=== PATIENT | male | born 1950 | race Caucasian/White ===

== ENCOUNTER 2020-08-18 22:16 | Observation (INO) | payer OTHER, SELFPAY ==
[2020-08-18 22:17] VITALS: TEMP 36.4; BMI 29.7
[2020-08-18 22:22] VITALS: BP 164/79; PULSE 62; RESP 17; O2SAT 97
--- NOTE | 2020-08-18 22:31 | EKG12_ITS ---
Test Reason : CP Blood Pressure : / mmHG Vent. Rate : 064 BPM Atrial Rate : 064 BPM P-R Int : 144 ms QRS Dur : 110 ms QT Int : 430 ms P-R-T Axes : 058 -22 002 degrees QTc Int : 443 ms Sinus rhythm with occasional Premature ventricular complexes Possible Left atrial enlargement Inferior infarct , age undetermined Abnormal ECG Confirmed by JOSE RAFAEL VILLAGRAN, BRUCE ([id number]), fan mail editor LARRY MELISSA ([id number]) on 08/19/2020 2:24:47 PM Referred By: JOANNA Confirmed By:BRUCE MANTILLA MD
--- NOTE | 2020-08-18 22:31 | ED.VIS.GEN ---
History of Present Illness Chief Complaint: Weakness Informant: Patient, Family, Nurse Licensed Practical Narrative: 70-year-old male states that earlier this evening he was sitting playing cards when he all of a sudden got lightheaded, sweaty, pale. He felt like he could not control his extremities. He states that they checked his blood pressure and it was high and EMS noted that he was bradycardic. Prehospital EKG shows no ACS. Patient states that he takes an aspirin and a cholesterol medication every day. States that 20 years ago he had a heart attack did not require any stent placement. Earlier in the day he felt his normal self. Current time he feels his normal self. During the event he did not have any discomfort/pain. Past Medical History - Allergies and Home Meds Allergies/Adverse Reactions: Allergies No Known Allergies Allergy (Verified 08/18/20 22:21) Primary Care Physician: NOT,DEFINED [Primary Care Provider] - Past Medical History: - - Heart attack dyslipidemia Surgical History: noncontributory Lives: With Family Smoking Status: Current some day smoker Drugs: None Review of Systems General: Reports: - - Near syncopal. Denies: Chills, Fever, Sweats Eyes: Denies: Visual changes - bilaterally, Diplopia ENT: Denies: Rhinorrhea, Sore throat Cardiovascular: Denies: Chest pain, Palpitations Respiratory: Denies: Dyspnea, Cough, Dyspnea on exertion Gastrointestinal: Denies: Abdominal pain, Nausea, Vomiting, Diarrhea, Melena, Hematochezia Genitourinary: Denies: Dysuria, Hematuria, Frequency Musculoskeletal: Denies: Back pain, Extremity Pain Skin: Denies: Rash, Wounds Neurological: Denies: Headache, Weakness, Numbness Physical Exam Vital Signs/Narrative: Vital Signs Temp Pulse Resp BP Pulse Ox 08/18/20 22:22 62 17 164/79 H 97 08/18/20 22:17 97.6 F L Inital Vital Signs reviewed: Yes General: Well nourished, Well developed, No Acute Distress Head: Normocephalic, Atraumatic Eyes: Perrl, EOMI ENT: Moist mucous membranes, No rhinorrhea Neck: Supple, Nontender Cardiovascular: Regular rate, Regular rhythm, No murmurs Respiratory: No distress, CTA bilaterally, Chest nontender Abdomen: Soft, Nontender, Nondistended, Normal bowel sounds Back: Nontender, Normal Inspection Extremities: Nontender, No edema Skin: Normal color, No rash Neurological: Alert, Oriented x3, Cranial nerves II-XII grossly intact, Normal Strength, Normal Sensation Psychological: Normal affect, Normal Mood Diagnostic/Tx/Re-eval Clinical Impression(s) from Imaging Studies Chest X-Ray 08/18/20 22:32 IMPRESSION: No acute pulmonary process Electronically Signed: Randy Parker MD at 22:50 EDT , Service support , Laboratory Last Values WBC 8.0 K/mm3 (4.4-11.0) 08/18/20 22: RBC 4.62 M/mm3 (4.6-6.2) 08/18/20 22:23 Hgb 14.6 g/dL (13.0-16.5) 08/18/20 22:23 Hct 42.9 % (40-54) 08/18/20 22:23 MCV 92.9 fL (80-94) 08/18/20 22:23 MCH 31.6 pg (27.0-32.0) 08/18/20 22: MCHC 34.0 g/dL (32-36) 08/18/20 22:23 RDW Std Deviation 44.5 fl (35.1-43.9) H 08/18/20 22:23 RDW Coeff of Nicholas 13.0 % (11.6-14.6) 08/18/20 22:23 Plt Count 237 K/mm3 (150-450) 08/18/20 22:23 MPV 9.6 fl (6.2-12.0) 08/18/20 22:23 Immature Gran % (Auto) 0.600 % (0.0-0.9) 08/18/20 22: Neut % (Auto) 59.1 % (47-70) 08/18/20 22: Lymph % (Auto) 30.4 % (19-41) 08/18/20 22:23 [place] % (Auto) 7.5 % (0-10) 08/18/20 22:23 Eos % (Auto) 1.9 % (0-5) 08/18/20 22: Baso % (Auto) 0.5 % (0-1) 08/18/20 22:23 Absolute Neuts (auto) 4.7 X10^3/uL (2.0-7.7) 08/18/20 22:23 Absolute Lymphs (auto) 2.42 X10^3/uL (0.83-4.51) 08/18/20 22:23 Nucleated RBC % 0 % (0-5) 08/18/20 22:23 PT 13.7 SECONDS (11.7-14.9) 08/18/20 22:23 INR 1.1 08/18/20 22:23 APTT 26.0 Seconds (24.1-36.2) 08/18/20 22:23 Sodium 140 mmol/L (136-145) 08/18/20 22:23 Potassium 3.5 mmol/L (3.5-5.1) 08/18/20 22:23 Chloride 107 mmol/L (98-107) 08/18/20 22:23 Carbon Dioxide 28.0 mmol/L (21.0-32.0) 08/18/20 22:23 Anion Gap 5 (5-15) 08/18/20 22:23 BUN 19 mg/dL (7-18) H 08/18/20 22:23 Creatinine 0.80 mg/dL (0.70-1.30) 08/18/20 22:23 Estim Creat Clear Calc 85.92 ml/min 08/18/20 22:23 Est GFR (MDRD) Af Amer 123 mL/min (>60) 08/18/20 22:23 Est GFR (MDRD) Non-Af 102 mL/min (>60) 08/18/20 22:23 BUN/Creatinine Ratio 23.8 RATIO (10-20) H 08/18/20 22:23 Glucose 144 mg/dL (74-106) H 08/18/20 22:23 Calcium 8.4 mg/dL (8.5-10.1) L 08/18/20 22:23 Magnesium 2.1 mg/dL (1.6-2.6) 08/18/20 22:23 Troponin I < 0.015 ng/mL (<0.045) 08/18/20 22:23 - EKG Initial EKG Interpretation: Sinus Rhythm - EKG done upon arrival demonstrates a sinus rhythm at a rate of 64 with PVCs. No concerning features of ACS - Medical Decision Making Patient was observed on the monitor. He continues to have significant ectopy in the forms of PVCs. However no bradycardic rhythms were noted. Basic lab work is negative. Plan is an observational stay to evaluate for possible cardiac dysrhythmia. ED Disposition - Plan for ED Patient: Disposition: Acute Care Hospital [facility] Diagnosis: Near syncope Referrals: NOT,DEFINED [Primary Care Provider] -
--- NOTE | 2020-08-18 22:32 | RAD_ITS ---
STUDY: X-RAY CHEST REASON FOR EXAM: Male, 70 years old. Substernal chest pain TECHNIQUE: Single AP portable view of the chest. COMPARISON: None. FINDINGS: EKG leads overlie the chest The lungs are clear and expanded. There is no demonstrated pleural abnormality. Normal size heart. Normal mediastinum and joycelyn. Normal visualized pulmonary arteries. Normal visualized aortic arch and descending thoracic aorta. There are diffuse degenerative changes of the visualized thoracic spine. Normal visualized ribs, clavicles, and shoulders. There is no demonstrated abnormality of the visualized soft tissue structures of the upper abdomen. RAD/Chest 1 View (Portable) IMPRESSION: No acute pulmonary process Electronically Signed: Randy Parker MD at 22:50 EDT , Service support ,
[2020-08-18 22:37] LABS: Absolute Lymphocyte Count 2.42 X10^3/uL (0.83-4.51); Absolute Neutrophil Count 4.7 X10^3/uL (2.0-7.7); Basophil# 0.04 X10^3/uL; Basophil% 0.5 % (0-1); Eosinophil# 0.15 X10^3/uL; Eosinophils% 1.9 % (0-5); Hematocrit 42.9 % (40-54); Hemoglobin 14.6 g/dL (13.0-16.5); Lymphocyte # 2.42 X10^3/ul (4.0); Lymphocyte % 30.4 % (19-41); Mean Corpuscular Hgb 31.6 pg (27.0-32.0); Mean Corpuscular Volume 92.9 fL (80-94); Mean Platelet Vol. 9.6 fl (6.2-12.0); Monocyte% 7.5 % (0-10); NRBC Flagged by Analyzer 0 % (0-5); Neutrophil # 4.71 X10^3/uL (2.7-7.7); Neutrophil % 59.1 % (47-70); Platelet Count 237 K/mm3 (150-450); RBC Distribution Width SD 44.5 fl (35.1-43.9); Red Blood Count 4.62 M/mm3 (4.6-6.2)
[2020-08-18 22:45] LABS: International Normalized Ratio 1.1; Prothrombin Time (Protime)PT. 13.7 SECONDS (11.7-14.9)
[2020-08-18 22:53] LABS: Anion Gap 5 (5-15); BUN 19 mg/dL (7-18); BUN/Creat Ratio 23.8 RATIO (10-20); Calcium,Total 8.4 mg/dL (8.5-10.1); Chloride 107 mmol/L (98-107); EST Glomerular Filtration Rate 102 mL/min (>60); Est Glom Filt Rate - Afr Amer 123 mL/min (>60); Estimated Creatinine Clearance 85.92 ml/min; Glucose 144 mg/dL (74-106); Magnesium 2.1 mg/dL (1.6-2.6); Potassium 3.5 mmol/L (3.5-5.1); Sodium Level 140 mmol/L (136-145)
[2020-08-18] MEDS: Aspirin 81 MG TAB.CHEW 324 MG PO (23:03)
--- NOTE | 2020-08-18 23:32 | PCM.HP.STD ---
<Madelaine Siu - Last Filed: 08/19/20 02:08> Problem List (1) Near syncope Status: Acute (2) Hyperlipidemia Status: Chronic (3) History of non-ST elevation myocardial infarction (NSTEMI) Status: Chronic History of Present Illness Date of Admission: 08/18/20 Chief Complaint: Lightheadedness with diaphoresis The patient is a 70 year old M who presents today with lightheadedness and diaphoresis. Patient states he was sitting playing cards when event took place. On initial presentation patient was hypertensive and bradycardic. Patient has a past medical history of hyperlipidemia and NSTEMI 20 years ago. Current vital signs BP 155/85, respiratory rate 14, heart rate 55, 98% on room air. Patient states that he is currently not experiencing any symptoms. Patient has not recently been ill and had felt fine up until it that took place. Patient currently sinus rhythm to sinus bradycardia. Past Medical History Past Medical History (Chronic Problems): Chronic Problems Hyperlipidemia (Chronic) History of non-ST elevation myocardial infarction (NSTEMI) (Chronic) Allergies No Known Allergies Allergy (Verified 08/18/20 22:21) Home Medications: Ambulatory Orders Medication Instructions Recorded Aspirin [Aspirin, Baby] 81 mg PO DAILY@0800 08/18/20 Simvastatin [Zocor] 10 mg PO QHS 08/18/20 Red Yeast Rice 600 mg PO DAILY 08/19/20 Surgical History: noncontributory Lives: With Family Smoking Status: Current some day smoker Drugs: None VTE Information - Inpt Only VTE Present on Admission: No VTE Mechan Device Prophylaxis: None VTE Pharm Prophylaxis ordered?: No Patient Problems: Active and Suspected Problems Near syncope (Acute) - Physical Exam Vitals/I&O's: Vital Signs Temp Pulse Resp BP Pulse Ox 97.6 F L 62 17 164/79 H 97 08/18/20 22:17 08/18/20 22:22 08/18/20 22:22 08/18/20 22:22 08/18/20 22:22 Oxygen Delivery Method Room Air Weight: 201 lb 0.985 oz Body Mass Index (BMI) 29.7 Laboratory Results 08/18/20 22:23: WBC 8.0, RBC 4.62, Hgb 14.6, Hct 42.9, MCV 92.9, MCH 31.6, MCHC 34.0, RDW Std Deviation 44.5 H, RDW Coeff of Nicholas 13.0, Plt Count 237, MPV 9.6, Immature Gran % (Auto) 0.600, Neut % (Auto) 59.1, Lymph % (Auto) 30.4, [place] % (Auto) 7.5, Eos % (Auto) 1.9, Baso % (Auto) 0.5, Absolute Neuts (auto) 4.7, Absolute Lymphs (auto) 2.42, Nucleated RBC % 0 08/18/20 22:23: PT 13.7, INR 1.1, APTT 26.0 08/18/20 22:23: Sodium 140, Potassium 3.5, Chloride 107, Carbon Dioxide 28.0, Anion Gap 5, BUN 19 H, Creatinine 0.80, Estim Creat Clear Calc 85.92, Est GFR (MDRD) Af Amer 123, Est GFR (MDRD) Non-Af 102, BUN/Creatinine Ratio 23.8 H, Glucose 144 H, Calcium 8.4 L, Magnesium 2.1, Troponin I < 0.015 Assessment/Plan All Active Problems Near syncope (Acute) <Reji Harrison - Last Filed: 08/19/20 02:46> History of Present Illness The patient is a 70 year old M [] Past Medical History Allergies No Known Allergies Allergy (Verified 08/18/20 22:21) - *Family History Maternal History Items: No pertinent history Paternal History Items: Heart Disease, Hypertension - Physical Exam Vitals/I&O's: Vital Signs Temp Pulse Resp BP Pulse Ox 98.5 F 59 L 16 162/89 H 97 08/19/20 01:00 08/19/20 01:00 08/19/20 01:00 08/19/20 01:00 08/19/20 01:00 Oxygen Delivery Method Room Air Weight: 177 lb 7.554 oz Body Mass Index (BMI) 26.2 Laboratory Results 08/18/20 22:23: WBC 8.0, RBC 4.62, Hgb 14.6, Hct 42.9, MCV 92.9, MCH 31.6, MCHC 34.0, RDW Std Deviation 44.5 H, RDW Coeff of Nicholas 13.0, Plt Count 237, MPV 9.6, Immature Gran % (Auto) 0.600, Neut % (Auto) 59.1, Lymph % (Auto) 30.4, [place] % (Auto) 7.5, Eos % (Auto) 1.9, Baso % (Auto) 0.5, Absolute Neuts (auto) 4.7, Absolute Lymphs (auto) 2.42, Nucleated RBC % 0 08/18/20 22:23: PT 13.7, INR 1.1, APTT 26.0 08/18/20 22:23: Sodium 140, Potassium 3.5, Chloride 107, Carbon Dioxide 28.0, Anion Gap 5, BUN 19 H, Creatinine 0.80, Estim Creat Clear Calc 85.92, Est GFR (MDRD) Af Amer 123, Est GFR (MDRD) Non-Af 102, BUN/Creatinine Ratio 23.8 H, Glucose 144 H, Calcium 8.4 L, Magnesium 2.1, Troponin I < 0.015 08/19/20 01:35: Troponin I < 0.015 Current Medications Acetaminophen (Acetaminophen 325 Mg Tablet) 650 mg PO Q6H PRN PRN PRN Reason: Pain Score 1-10/Temp > 100.7 F Sodium Chloride () 250 mls @ 15 mls/hr IV .[id number] PRN PRN Reason: Saline Flush Sodium Chloride () 250 mls @ 15 mls/hr IV .[id number] PRN PRN Reason: Additional IVPB Infusion Melatonin (Melatonin 3 Mg Tablet) 3 mg PO QHS PRN PRN PRN Reason: INSOMNIA Ondansetron HCl (Ondansetron 4 Mg/2 Ml Vial) 4 mg IV Q8H PRN PRN PRN Reason: NAUSEA/VOMITING Sodium Chloride (0.9% Saline Lock 10 Ml Syringe) 10 - 40 ml IV UD PRN PRN Reason: SALINE FLUSH Addendum: Dr. Harrison I personally examined the patient and reviewed the chart. I agree with the above. 70-year-old male who presents from home with presyncope. He states that he was sitting at home playing cards when he got lightheaded sweaty and pale and almost blacked out. He said that at the time he could barely control his arms or his legs and now feels back to completely normal. Initial troponins were negative, and lab work was unremarkable. EKG was nonischemic and he denies any chest pain or shortness of breath. He states he did have a OH about 20 years ago but did not need any intervention at that time. We will continue to monitor him on telemetry and obtain serial troponins. We will proceed with an echo in the morning. OBSV E&M: [id number] Initial observation care L2
[2020-08-18 23:35] VITALS: BP 155/85; PULSE 55; RESP 14; TEMP 36.3; O2SAT 98
[2020-08-19] VITALS (11 sets, daily range): BP systolic 137–172; BP diastolic 68–89; PULSE 48–59; RESP 15–18; TEMP 36.4–36.9; O2SAT 94–98; BMI 26.2
--- NOTE | 2020-08-19 00:40 | ECHOCS_ITS ---
Reason For Study: Arrhythmia Procedure This was a 2D Doppler, Color Flow transthoracic echocardiogram. The study was technically difficult. Contrast injection was performed. Exam performed portable in patient room. Left Ventricle Normal LV size. Moderate concentric left ventricular hypertrophy. The estimated ejection fraction is 45 %. Mild to moderate segmental systolic dysfunction (see wall motion). Stage 1 diastolic dysfunction. Infero-Basal: Akinetic. Posterior-Basal: Hypokinetic. Lateral-Basal: Hypokinetic. Mid- Lateral : Hypokinetic. Basal inferoseptal: Hypokinetic. Mid-Inferior: Akinetic. The rest of the wall segments are normal. Right Ventricle Normal RV size. Normal systolic function. Atria The left atrium is moderately enlarged. The right atrium is mildly enlarged. Mitral Valve Normal mitral valve. Mild (1+) eccentric mitral valve insufficiency. Tricuspid Valve Normal tricuspid valve. Mild (1+) tricuspid valve insufficiency. Pulmonary artery systolic pressure is 28 mmHg. Aortic Valve Trisinus/trileaflet aortic valve. Mild focal aortic valve calcification. Pericardium/Pleural No pericardial effusion. Medication Diluted definity 3ml given slow IV push to enhance endocardial definition. MMode/2D Measurements & Calculations LVIDd: 5.5 cm IVSd: 1.3 cm LA dimension: 5.0 cm LVIDs: 4.8 cm LVPWd: 1.6 cm RVDd: 4.4 cm FS: 13.5 % LAV(MOD-bp): 100.2 ml LA A4 area: 29.2 cm2 RA A4 area: 21.8 cm2 LAV(MOD-bp) Indexed: 51.1 ml/m2 LAV(MOD-sp2): 80.6 ml LAV(MOD-sp4): 101.1 ml Time Measurements MV dec time: 0.74 sec Doppler Measurements & Calculations MV E max miguelangel: 45.6 cm/sec Lat Peak E' Miguelangel: 11.1 cm/sec Med Peak E' Miguelangel: 5.5 cm/sec MV A max miguelangel: 98.4 cm/sec E/E' lat: 4.1 E/E' med: 8.3 MV E/A: 0.46 MV V2 max: 99.0 cm/sec MV P1/2t max miguelangel: 52.4 cm/sec Ao V2 max: 182.5 cm/sec MV max P.9 mmHg MV P1/2t: 216.9 msec Ao max P.3 mmHg MV V2 mean: 42.8 cm/sec MV mean P.88 mmHg MV dec slope: 70.8 cm/sec2 MV V2 VTI: 32.8 cm MVA(P1/2t): 1.0 cm2 LV V1 max: 100.5 cm/sec PA V2 max: 128.1 cm/sec TR max miguelangel: 245.0 cm/sec LV V1 max P.0 mmHg TR max P.0 mmHg ECHO/Echo Complete W/ Contrast Interpretation Summary Normal LV size. Moderate concentric left ventricular hypertrophy. The estimated ejection fraction is 45 %. Mild to moderate segmental systolic dysfunction (see wall motion). The left atrium is moderately enlarged. Pulmonary artery systolic pressure is 28 mmHg. Stage 1 diastolic dysfunction. Ordering Physician: Madelaine Siu Referring Physician: Isaiah Chinchilla BIOINFORMATICS TECHNICIAN-C Performed By: Ricardo Yee RCS
--- NOTE | 2020-08-19 00:41 | EKG12_ITS ---
Test Reason : CP ADMISSION Blood Pressure : / mmHG Vent. Rate : 053 BPM Atrial Rate : 053 BPM P-R Int : 140 ms QRS Dur : 106 ms QT Int : 434 ms P-R-T Axes : 053 -25 -33 degrees QTc Int : 407 ms Sinus bradycardia Inferior infarct , age undetermined Abnormal ECG No previous ECGs available Confirmed by JOSE RAFAEL VILLAGRAN, BRUCE ([id number]), assistant editor DG CASTLE ([id number]) on 08/21/2020 1:22:19 PM Referred By: DR BLANCO Confirmed By:BRUCE MANTILLA MD
[2020-08-19 04:43] LABS: Absolute Neutrophil Count 4.9 X10^3/uL (2.0-7.7); Basophil# 0.04 X10^3/uL; Basophil% 0.5 % (0-1); Eosinophil# 0.06 X10^3/uL; Eosinophils% 0.7 % (0-5); Hematocrit 41.4 % (40-54); Hemoglobin 13.8 g/dL (13.0-16.5); Lymphocyte % 30.7 % (19-41); Mean Corp Hgb Conc 33.3 g/dL (32-36); Mean Corpuscular Hgb 30.5 pg (27.0-32.0); Mean Corpuscular Volume 91.6 fL (80-94); Mean Platelet Vol. 9.7 fl (6.2-12.0); Monocyte# 0.61 X10^3/uL; Monocyte% 7.5 % (0-10); NRBC Flagged by Analyzer 0 % (0-5); Neutrophil % 60.1 % (47-70); Platelet Count 223 K/mm3 (150-450); RBC Distribution Width CV 13.1 % (11.6-14.6); Red Blood Count 4.52 M/mm3 (4.6-6.2); White Blood Count 8.2 K/mm3 (4.4-11.0)
[2020-08-19 04:59] LABS: Anion Gap 4 (5-15); BUN 17 mg/dL (7-18); BUN/Creat Ratio 30.2 RATIO (10-20); Calcium,Total 8.4 mg/dL (8.5-10.1); Chloride 108 mmol/L (98-107); Creatinine, Serum 0.56 mg/dL (0.70-1.30); EST Glomerular Filtration Rate 152 mL/min (>60); Est Glom Filt Rate - Afr Amer 184 mL/min (>60); Estimated Creatinine Clearance 68.74 ml/min; Glucose 96 mg/dL (74-106); Sodium Level 138 mmol/L (136-145)
--- NOTE | 2020-08-19 13:59 | PN_ITS ---
<CarterAlicia PARTS FINISHER - Last Filed: 08/19/20 14:04> Patient Problems: Active and Suspected Problems Near syncope (Acute) Subjective: Patient seen and examined. Denies further lightheadedness, diaphoresis. Denies chest pain, shortness of breath. Heart rate remains mildly bradycardic. - Physical Exam Vitals/I&O's: Vital Signs Temp Pulse Resp BP Pulse Ox 97.6 F L 56 L 18 157/68 H 94 08/19/20 11:45 08/19/20 11:45 08/19/20 11:45 08/19/20 11:45 08/19/20 11:45 Oxygen Delivery Method Room Air Weight: 177 lb 7.554 oz Body Mass Index (BMI) 26.2 Intake and Output for Last 24 Hours 08/17/20 08/18/20 08/19/20 23:59 23:59 23:59 Intake Total 240 / 240 Balance 240 / 240 General: Alert, Oriented x3, Cooperative HEENT: Atraumatic, PERRLA, EOMI, Normocephalic Neck: Supple, No JVD, Negative Carotid Bruits Lungs: Clear to auscultation, Normal air movement Cardiovascular: Regular Rhythm, Normal S1, Normal S2, No murmurs, Bradycardic Abdomen: Bowel Sounds Present, Soft, Non Tender, Non-Distended Extremities: No clubbing, No cyanosis, No edema, Capillary Refill Less than 3 Seconds Skin: No rashes, No breakdown Musculoskeletal: No Tenderness to Palpation of Joints or Extremities Neurological: Cranial nerves II-XII grossly intact, Neuro grossly intact Psych/Mental Status: Normal Affect, Appropriate Laboratory Results 08/18/20 22:23: WBC 8.0, RBC 4.62, Hgb 14.6, Hct 42.9, MCV 92.9, MCH 31.6, MCHC 34.0, RDW Std Deviation 44.5 H, RDW Coeff of Nicholas 13.0, Plt Count 237, MPV 9.6, Immature Gran % (Auto) 0.600, Neut % (Auto) 59.1, Lymph % (Auto) 30.4, [place] % (Auto) 7.5, Eos % (Auto) 1.9, Baso % (Auto) 0.5, Absolute Neuts (auto) 4.7, Absolute Lymphs (auto) 2.42, Nucleated RBC % 0 08/18/20 22:23: PT 13.7, INR 1.1, APTT 26.0 08/18/20 22:23: Sodium 140, Potassium 3.5, Chloride 107, Carbon Dioxide 28.0, Anion Gap 5, BUN 19 H, Creatinine 0.80, Estim Creat Clear Calc 85.92, Est GFR (MDRD) Af Amer 123, Est GFR (MDRD) Non-Af 102, BUN/Creatinine Ratio 23.8 H, Glucose 144 H, Calcium 8.4 L, Magnesium 2.1, Troponin I < 0.015 08/19/20 01:35: Troponin I < 0.015 08/19/20 04:36: WBC 8.2, RBC 4.52 L, Hgb 13.8, Hct 41.4, MCV 91.6, MCH 30.5, MCHC 33.3, RDW Std Deviation 44.0 H, RDW Coeff of Nicholas 13.1, Plt Count 223, MPV 9.7, Immature Gran % (Auto) 0.500, Neut % (Auto) 60.1, Lymph % (Auto) 30.7, [place] % (Auto) 7.5, Eos % (Auto) 0.7, Baso % (Auto) 0.5, Absolute Neuts (auto) 4.9, Absolute Lymphs (auto) 2.50, Nucleated RBC % 0 08/19/20 04:36: Sodium 138, Potassium 4.0, Chloride 108 H, Carbon Dioxide 26.0, Anion Gap 4 L, BUN 17, Creatinine 0.56 L, Estim Creat Clear Calc 68.74, Est GFR (MDRD) Af Amer 184, Est GFR (MDRD) Non-Af 152, BUN/Creatinine Ratio 30.2 H, Glucose 96, Calcium 8.4 L 08/19/20 04:36: Troponin I < 0.015 Current Medications Acetaminophen (Acetaminophen 325 Mg Tablet) 650 mg PO Q6H PRN PRN PRN Reason: Pain Score 1-10/Temp > 100.7 F Sodium Chloride () 250 mls @ 15 mls/hr IV .[id number] PRN PRN Reason: Saline Flush Sodium Chloride () 250 mls @ 15 mls/hr IV .[id number] PRN PRN Reason: Additional IVPB Infusion Melatonin (Melatonin 3 Mg Tablet) 3 mg PO QHS PRN PRN PRN Reason: INSOMNIA Ondansetron HCl (Ondansetron 4 Mg/2 Ml Vial) 4 mg IV Q8H PRN PRN PRN Reason: NAUSEA/VOMITING Sodium Chloride (0.9% Saline Lock 10 Ml Syringe) 10 - 40 ml IV UD PRN PRN Reason: SALINE FLUSH Medical Necessity - Tobacco Use Smoking Status: Light Smoker (<10/day) Tobacco Use: Cigarettes Assessment/Plan All Active Problems Near syncope (Acute) 1. Lightheadedness, near syncope, bradycardia-echocardiogram demonstrates an EF of 45%, mild to moderate systolic dysfunction, pulmonary artery systolic pressure 28 mmHg, stage I diastolic dysfunction. Patient is not on rate limiting medications. Cardiology consulted, anticipate patient will require heart cath for further evaluation. Continue aspirin, statin. 2. Hyperlipidemia-continue statin. Fasting lipid panel in a.m. 3. History of NSTEMI-on aspirin, statin. States this occurred 21 years ago, he reports he did not have stents at that time however states he was told he had buildup in his arteries. DVT prophylaxis- SCDs This patient was seen by LIDA Gomez under the supervision of Dr. Dangelo. <Jeaneth Dangelo - Last Filed: 08/19/20 15:58> Subjective: I agree with the above and the following is a representation of my independent history and physical examination. Patient denies any chest pain, lightheadedness, diaphoresis or any other further symptoms. States he is feeling well. - Physical Exam Vitals/I&O's: Vital Signs Temp Pulse Resp BP Pulse Ox 97.5 F L 54 L 18 158/80 H 95 08/19/20 15:35 08/19/20 15:35 08/19/20 15:35 08/19/20 15:35 08/19/20 15:35 Oxygen Delivery Method Room Air Weight: 80.5 kg Body Mass Index (BMI) 26.2 Intake and Output for Last 24 Hours 08/17/20 08/18/20 08/19/20 23:59 23:59 23:59 Intake Total 240 / 240 Balance 240 / 240 General: Alert, Oriented x3, Cooperative, No apparent distress, Well developed, Well nourished HEENT: Atraumatic, PERRLA, EOMI, Normocephalic Neck: Supple, No JVD, Trachea Midline, Thyroid Normal Size and Texture Lungs: Clear to auscultation, Normal air movement, No rhonchi, No wheeze, No rales Cardiovascular: Regular Rhythm, Normal S1, Normal S2, No murmurs, Bradycardic Abdomen: Bowel Sounds Present, Soft, Non Tender, Non-Distended Extremities: No clubbing, No cyanosis, No edema, Capillary Refill Less than 3 Seconds, Peripheral Pulses Normal Skin: No rashes, No breakdown Musculoskeletal: No Tenderness to Palpation of Joints or Extremities, Arthritic Changes Lymphatic: No Cervical, Supraclavicular, or Inguinal Adenopathy Neurological: Cranial nerves II-XII grossly intact, Neuro grossly intact Psych/Mental Status: Normal Affect, Appropriate Laboratory Results 08/18/20 22:23: WBC 8.0, RBC 4.62, Hgb 14.6, Hct 42.9, MCV 92.9, MCH 31.6, MCHC 34.0, RDW Std Deviation 44.5 H, RDW Coeff of Nicholas 13.0, Plt Count 237, MPV 9.6, Immature Gran % (Auto) 0.600, Neut % (Auto) 59.1, Lymph % (Auto) 30.4, [place] % (Auto) 7.5, Eos % (Auto) 1.9, Baso % (Auto) 0.5, Absolute Neuts (auto) 4.7, Absolute Lymphs (auto) 2.42, Nucleated RBC % 0 08/18/20 22:23: PT 13.7, INR 1.1, APTT 26.0 08/18/20 22:23: Sodium 140, Potassium 3.5, Chloride 107, Carbon Dioxide 28.0, Anion Gap 5, BUN 19 H, Creatinine 0.80, Estim Creat Clear Calc 85.92, Est GFR (MDRD) Af Amer 123, Est GFR (MDRD) Non-Af 102, BUN/Creatinine Ratio 23.8 H, Glucose 144 H, Calcium 8.4 L, Magnesium 2.1, Troponin I < 0.015 08/19/20 01:35: Troponin I < 0.015 08/19/20 04:36: WBC 8.2, RBC 4.52 L, Hgb 13.8, Hct 41.4, MCV 91.6, MCH 30.5, MCHC 33.3, RDW Std Deviation 44.0 H, RDW Coeff of Nicholas 13.1, Plt Count 223, MPV 9.7, Immature Gran % (Auto) 0.500, Neut % (Auto) 60.1, Lymph % (Auto) 30.7, [place] % (Auto) 7.5, Eos % (Auto) 0.7, Baso % (Auto) 0.5, Absolute Neuts (auto) 4.9, Absolute Lymphs (auto) 2.50, Nucleated RBC % 0 08/19/20 04:36: Sodium 138, Potassium 4.0, Chloride 108 H, Carbon Dioxide 26.0, Anion Gap 4 L, BUN 17, Creatinine 0.56 L, Estim Creat Clear Calc 68.74, Est GFR (MDRD) Af Amer 184, Est GFR (MDRD) Non-Af 152, BUN/Creatinine Ratio 30.2 H, Glucose 96, Calcium 8.4 L 08/19/20 04:36: Troponin I < 0.015 08/19/20 04:36: Hemoglobin A1c Pending Current Medications Acetaminophen (Acetaminophen 325 Mg Tablet) 650 mg PO Q6H PRN PRN PRN Reason: Pain Score 1-10/Temp > 100.7 F Sodium Chloride () 250 mls @ 15 mls/hr IV .[id number] PRN PRN Reason: Saline Flush Sodium Chloride () 250 mls @ 15 mls/hr IV .[id number] PRN PRN Reason: Additional IVPB Infusion Sodium Chloride () 1,000 mls @ 0 mls/hr IV .Q0M [facility] Melatonin (Melatonin 3 Mg Tablet) 3 mg PO QHS PRN PRN PRN Reason: INSOMNIA Ondansetron HCl (Ondansetron 4 Mg/2 Ml Vial) 4 mg IV Q8H PRN PRN PRN Reason: NAUSEA/VOMITING Sodium Chloride (0.9% Saline Lock 10 Ml Syringe) 10 - 40 ml IV UD PRN PRN Reason: SALINE FLUSH Assessment/Plan ASSESSMENT Presyncope Bradycardia Lightheadedness Hyperlipidemia Hypertension CAD Overweight-BMI 26.2 PLAN -Echocardiogram was markedly abnormal with depressed EF at 45% and segmental wall motion abnormalities, mild PAH, and diastolic dysfunction -Cardiac catheterization per Dr. Gill tomorrow -Continue aspirin and statin -Check lipids in a.m. -Hemoglobin A1c is pending -Start lisinopril 10 mg for elevated blood pressure -Unable to utilize beta-carlton secondary to bradycardia -Updated patient and on plan for cardiac catheterization tomorrow -? RCA involvement given bradycardia Inpatient E&M: 28633 Subs Hosp L2
--- NOTE | 2020-08-19 14:15 | CON.PCM_ITS ---
Reason for Consult Date of Consultation: 08/19/20 Reason for Consultation: Abnormal echocardiogram and near syncope History of Present Illness: The patient is a 70 year old M with no previously documented coronary artery disease who presented to the hospital with a near syncopal spell. He was noted to be bradycardic when he presented. He said that he felt his arms and legs getting numb. He denied any chest pain per se. He was noted to be bradycardic and throughout his hospitalization thus far he has not had any pauses. His EKG demonstrated sinus bradycardia with evidence of previous inferior myocardial infarction. He had an echocardiogram performed which demonstrated reduced left ventricular systolic function with segmental wall motion abnormalities present. He denies any neck or arm discomfort to suggest angina. [] Past Medical History Allergies/Adverse Reactions: Allergies No Known Allergies Allergy (Verified 08/18/20 22:21) Home Medications: Ambulatory Orders Medication Instructions Recorded Aspirin [Aspirin, Baby] 81 mg PO DAILY@0800 08/18/20 Simvastatin [Zocor] 10 mg PO QHS 08/18/20 Red Yeast Rice 600 mg PO DAILY 08/19/20 Past Medical History (Chronic Problems): Chronic Problems Hyperlipidemia (Chronic) History of non-ST elevation myocardial infarction (NSTEMI) (Chronic) Surgical History: noncontributory Psychiatric History: No pertinent psych hx - *Family History Maternal History Items: No pertinent history Paternal History Items: Heart Disease, Hypertension Lives: With Family Smoking Status: Light Smoker (<10/day) Tobacco Use: Cigarettes Alcohol: None Drugs: None Review of Systems - Review of Systems General: Denies: Fever, Night Sweats, Fatigue HEENT: Denies: Vision Change Cardiovascular: Denies: Chest Discomfort, Shortness of Breath, Orthopnea, PND, Peripheral Edema, Palpitations, Lightheadedness, Dizziness, Near Syncope, Syncope Respiratory: Denies: Cough, Sputum Production, Hemoptysis Gastrointestinal: Denies: Hematemesis, Hematochezia, Melena Genitourinary: Denies: Dysuria, Hematuria Muscoloskeletal: Denies: Myalgias Skin: Denies: Rash Neurological: Reports: Dizziness Psychiatric: Denies: Anxiety Endocrine: Denies: Heat Intolerance Subjectve: Pleasant gentleman in no distress Objective: Vital Signs Temp Pulse Resp BP Pulse Ox 97.6 F L 56 L 18 157/68 H 94 08/19/20 11:45 08/19/20 11:45 08/19/20 11:45 08/19/20 11:45 08/19/20 11:45 Oxygen Delivery Method Room Air Weight: 177 lb 7.554 oz Body Mass Index (BMI) 26.2 Intake and Output for Last 24 Hours 08/17/20 08/18/20 08/19/20 23:59 23:59 23:59 Intake Total 240 / 240 Balance 240 / 240 General: Awake, Alert, Oriented x 3 HEENT: PERRL, EOMI, Sclera Non Icteric Neck: Supple, Good ROM, No Lymph Node Enlargement Lungs: Clear to auscultation Cardiovascular: Regular Rhythm, Normal S1, Normal S2, No Murmurs, No Rubs, No Gallops Vascular: No Carotid Bruits, Normal Femoral Pulses, Normal Radial Pulses, Normal Dorsalis Pedal Pulse, Normal Posterior Tibial Pulses Abdomen: Bowel Sounds Present, Soft, Non Tender, No HSM, No Organomegaly Extremities: No Cyanosis, No Clubbing, No edema Musculoskeletal: No Erythema Skin: No Rashes Neurological: No Focal Motor or Sensory Deficit 08/18/20 22:23: WBC 8.0, RBC 4.62, Hgb 14.6, Hct 42.9, MCV 92.9, MCH 31.6, MCHC 34.0, Plt Count 237, MPV 9.6, Immature Gran % (Auto) 0.600, Neut % (Auto) 59.1, Lymph % (Auto) 30.4, Woodruff % (Auto) 7.5, Eos % (Auto) 1.9, Baso % (Auto) 0.5, Absolute Neuts (auto) 4.7, Nucleated RBC % 0 08/18/20 22:23: PT 13.7, INR 1.1, APTT 26.0 08/18/20 22:23: Sodium 140, Potassium 3.5, Chloride 107, Carbon Dioxide 28.0, Anion Gap 5, BUN 19 H, Creatinine 0.80, Est GFR (MDRD) Af Amer 123, Est GFR (MDRD) Non-Af 102, BUN/Creatinine Ratio 23.8 H, Glucose 144 H, Calcium 8.4 L, Magnesium 2.1, Troponin I < 0.015 08/19/20 01:35: Troponin I < 0.015 08/19/20 04:36: WBC 8.2, RBC 4.52 L, Hgb 13.8, Hct 41.4, MCV 91.6, MCH 30.5, MCHC 33.3, Plt Count 223, MPV 9.7, Immature Gran % (Auto) 0.500, Neut % (Auto) 60.1, Lymph % (Auto) 30.7, Woodruff % (Auto) 7.5, Eos % (Auto) 0.7, Baso % (Auto) 0.5, Absolute Neuts (auto) 4.9, Nucleated RBC % 0 08/19/20 04:36: Sodium 138, Potassium 4.0, Chloride 108 H, Carbon Dioxide 26.0, Anion Gap 4 L, BUN 17, Creatinine 0.56 L, Est GFR (MDRD) Af Amer 184, Est GFR (MDRD) Non-Af 152, BUN/Creatinine Ratio 30.2 H, Glucose 96, Calcium 8.4 L 08/19/20 04:36: Troponin I < 0.015 Rhythm: EKG: Sinus bradycardia with evidence of previous inferior infarct ECHO: Left ventricular systolic dysfunction estimated ejection fraction of 45% with segmental wall motion abnormalities present. Stress Test: Cardiac Cath: PCI: CT Surgery: Holter monitor: EPS: PPM: CXR: Chest CT Scan: Assessment/Plan 1. Abnormal echocardiogram * Patient presents with near syncopal episode and is noted to have an abnormal echocardiogram. His inferior wall is akinetic's and with his EKG demonstrating Q waves in the inferior leads the above suggests a previous myocardial infarct albeit silent. With his near syncopal episode we discussed whether we should proceed with stress testing or invasive approach. He is not on any anginal medications but remains quite bradycardic. Based on the above it was determined after much discussion that perhaps an invasive approach with a cardiac catheterization would be helpful to assess his coronary anatomy. Depending on the findings further recommendations will be made. Risk benefits and alternatives have been explained to him he understands and agrees to proceed. * * 2. Near syncope * He does have a bradycardia arrhythmia and this could have been the cause of his near syncopal episode. It may however be prudent to exclude any ventricular tachyarrhythmia. We will continue to monitor him in the meantime. Depending on the findings of the above tests further recommendations will be made. * Thank you for allowing me to participate in the care of your patient. Please don't hesitate to call if any issues arise.
[2020-08-19 16:28] LABS: Hemoglobin A1c 5.4 % (3.8-5.6)
[2020-08-19] MEDS: Lisinopril 10 MG Tablet PO (17:02)
[2020-08-19] MEDS: Atorvastatin Calcium 10 MG Tablet 5 MG PO (22:55)
[2020-08-19] MEDS: 0.9% Saline Lock 10 ML Syringe IV (22:56)
[2020-08-20] VITALS (15 sets, daily range): BP systolic 127–156; BP diastolic 62–83; PULSE 48–54; RESP 12–18; TEMP 36.4–36.8; O2SAT 92–96
[2020-08-20 05:53] LABS: Anion Gap 5 (5-15); BUN 15 mg/dL (7-18); Calcium,Total 8.4 mg/dL (8.5-10.1); Chloride 105 mmol/L (98-107); Cholesterol 173 mg/dL (200); Creatinine, Serum 0.62 mg/dL (0.70-1.30); EST Glomerular Filtration Rate 135 mL/min (>60); Est Glom Filt Rate - Afr Amer 164 mL/min (>60); Estimated Creatinine Clearance 68.74 ml/min; Glucose 100 mg/dL (74-106); High Density Lipoprotein 49 mg/dL; Potassium 3.6 mmol/L (3.5-5.1); Sodium Level 136 mmol/L (136-145); Triglycerides 155 mg/dL; Very Low Density Lipoprotein 31 mg/dL (5-40)
--- NOTE | 2020-08-20 05:55 | EKG12_ITS ---
Test Reason : AM EKG Blood Pressure : / mmHG Vent. Rate : 046 BPM Atrial Rate : 046 BPM P-R Int : 140 ms QRS Dur : 112 ms QT Int : 482 ms P-R-T Axes : 044 -27 -45 degrees QTc Int : 421 ms Sinus bradycardia Inferior infarct , age undetermined ST & T wave abnormality, consider lateral ischemia Abnormal ECG Confirmed by MENA VILLAGRAN, MIRTA ([id number]), news assignment editor DG CASTLE ([id number]) on 08/22/2020 11:39:26 AM Referred By: BELLA Confirmed By:MIRTA SAN MD
[2020-08-20] MEDS: Lisinopril 10 MG Tablet PO (06:29)
[2020-08-20] MEDS: Aspirin 81 MG TAB.CHEW PO (06:29)
--- NOTE | 2020-08-20 06:59 | NURSING ---
Called report to Benita in agriculture [employer] at this time. CAITLYN Paredes
--- NOTE | 2020-08-20 08:25 | PN.CARD_ITS ---
Subjectve: Patient seen and evaluated. Appears to be doing well. Objective: Vital Signs Temp Pulse Resp BP Pulse Ox 98.2 F 54 L 12 140/83 H 96 08/20/20 06:27 08/20/20 07:00 08/20/20 06:27 08/20/20 06:27 08/20/20 06:27 Oxygen Delivery Method Room Air Weight: 177 lb 7.554 oz Body Mass Index (BMI) 26.2 Intake and Output for Last 24 Hours 08/18/20 08/19/20 08/20/20 23:59 23:59 23:59 Intake Total 980 / 980 Balance 980 / 980 General: Awake, Alert, Oriented x 3 HEENT: PERRL, EOMI, Sclera Non Icteric Neck: Supple, Good ROM, No Lymph Node Enlargement Lungs: Clear to auscultation Cardiovascular: Regular Rhythm, Normal S1, Normal S2, No Murmurs, No Rubs, No Gallops Vascular: No Carotid Bruits, Normal Femoral Pulses, Normal Radial Pulses, Normal Dorsalis Pedal Pulse, Normal Posterior Tibial Pulses Abdomen: Bowel Sounds Present, Soft, Non Tender, No HSM, No Organomegaly Extremities: No Cyanosis, No Clubbing, No edema Musculoskeletal: No Erythema Skin: No Rashes Lymphatic: No Lymph Node Enlargement Neurological: No Focal Motor or Sensory Deficit Psych/Mental Status: Appropriate 08/19/20 04:36: Hemoglobin A1c 5.4 08/20/20 05:08: Sodium 136, Potassium 3.6, Chloride 105, Carbon Dioxide 26.0, Anion Gap 5, BUN 15, Creatinine 0.62 L, Est GFR (MDRD) Af Amer 164, Est GFR (MDRD) Non-Af 135, BUN/Creatinine Ratio 24.0 H, Glucose 100, Calcium 8.4 L, Triglycerides 155, Cholesterol 173, LDL Cholesterol 93, VLDL Cholesterol 31, HDL Cholesterol 49 Rhythm: EKG: ECHO: Stress Test: Cardiac Cath: PCI: CT Surgery: Holter monitor: EPS: PPM: CXR: Chest CT Scan: Medical Necessity - Tobacco Use Smoking Status: Light Smoker (<10/day) Tobacco Use: Cigarettes Assessment/Plan 1. Abnormal echocardiogram * Patient presents with near syncopal episode and is noted to have an abnormal echocardiogram. His inferior wall is akinetic's and with his EKG demonstrating Q waves in the inferior leads the above suggests a previous myocardial infarct albeit silent. With his near syncopal episode we discussed whether we should proceed with stress testing or invasive approach. He is not on any anginal medications but remains quite bradycardic. * * His cardiac catheterization this morning demonstrated the following: Normal left main coronary artery. Left anterior descending artery with no significant disease. Ramus intermedius with no significant disease. Nondominant left circumflex artery which is subtotally occluded. Dominant large right coronary artery with eccentric complex mid moderate to high-grade stenosis. * Left ventricular systolic dysfunction with akinetic inferior basal segment and moderate hypokinesis. * Based on the above angiographic findings would discharge patient on current medical therapy and perform a stress test as an outpatient to assess the significance of the lesion as well as the viability of the inferior territory. Depending on those findings further recommendations will be made. The above has been discussed with the patient as well as the hospitalist. 2. Near syncope * He does have a bradycardia arrhythmia and this could have been the cause of his near syncopal episode. It may however be prudent to exclude any ventricular tachyarrhythmia. * No further monitoring is needed at this time. * Thank you for allowing me to participate in the care of your patient. Please don't hesitate to call if any issues arise.
--- NOTE | 2020-08-20 08:34 | CL.D_ITS ---
Patient Name: BRINA AGARWAL Study Date: 08/20/2020 Performing: Eliseo Gill MD Ht: 69 inches 175 cm : 1950 Wt: 178.8 lbs 81 kg Age: 70 Gender: male BSA: 1.97 PROCEDURE(S) PERFORMED QB78-CBC/COR/LV CLINICAL PROFILE AND INDICATIONS Indications: Syncope Heart Failure: None Stress/Imaging Stress/Image Study Performed: No CAD Presentations: Other: syncope CONCLUSIONS Subtotally occluded non dominant circumflex artery, complex mid right coronary artery. RECOMMENDATIONS Would recommend medical therapy for now and outpatient interval stress test to assess ischemia noted in the inferior wall. DESCRIPTION OF PROCEDURE The patient arrived to the procedure lab. The risks and benefits of the procedure as well as a full d escription of our services here and current unavailability of surgical backup were fully explained to the patient and/or their significant other prior to the catheterization. The Timeout was completed, verifying the correct patient and procedure. The patient's procedural site was prepped and draped in the usual fashion. Local anesthetic was given subcutaneously to right radial region with Lidocaine 2% . Using a modified Seldinger technique, arterial access was obtained via the right radial artery, a 6 Fr sheath was inserted. Left Coronary Artery selective angiography was performed in multiple views u sing a 5 Fr. 4.0 [place] catheter. Right Coronary Artery selective angiography was then performed in mu ltiple views using a 5 Fr. 4.0 [place] catheter. Left Ventriculography was performed in SOTO projection using a 5 Fr. Pigtail catheter. LV to AO pullback pressures were then recorded.The arterial sheath was pulled and a TR Band was applied for hemostasis CORONARY ANGIOGRAPHY DOMINANCE: Right Dominant LEFT HEART ASSESSMENT Left Ventricular Ejection Fraction: by LV Gram 45 % Inferior Basal Akinesis. Inferior Mid Hypokinesis - Moderate. Global Hypokinesis - Mild Depressed Left Ventricular systolic function LEFT MAIN: Angiographically normal LEFT ANTERIOR DESCENDING ARTERY: No significant disease noted CIRCUMFLEX ARTERY: PROX CIRC: Subtotally occluded with homocollaterals. RAMUS: No significant disease noted RIGHT CORONARY ARTERY: MID RCA: Complex tortuous mid right coronary artery stenosis of 70 to 85%. Rest of the vessel appear s minimally diseased. COMPLICATIONS No Complications PROCEDURE MEDICATIONS Versed 1 mg IV Fentanyl 50 mcg IV Oxygen: 2 L/min via nasal cannula Heparin given IA 08/20/2020 07:43:14 Verapamil 1mg, Ntg 50mcgs, 1000 units of Heparin given IA 08/20/2020 07:43:14 SUMMARY OF HEMODYNAMIC DATA Time AIR REST ECG 07:30:56 AO 128/66 (76) SA 07:45:02 AO 115/70 (101) 07:52:53 LV 137/3, 9 08:01:18 LV 125/3, 5 08:01:24 LV 126/7, 17 08:02:09 LV 130/4, 7 08:02:16 LVp 131/4, 7 08:02:20 AOp 135/67 (93) 08:02:25 Signed By Eliseo Gill MD On 08/20/2020 08:33:48 Eliseo Gill MD
[2020-08-20 08:57] LABS: Thyroid Stim Hormone (TSH) 2.13 uIU/mL (0.358-3.74)
--- NOTE | 2020-08-20 10:33 | PCM.DC ---
- Discharge Diagnoses Current Active Problems: Current Active and Chronic Problems Near syncope (Acute) Hyperlipidemia (Chronic) History of non-ST elevation myocardial infarction (NSTEMI) (Chronic) You will use the following diet at home:: Cardiac Discharge Activity: Return to Normal Activity Call your doctor if you observe: Shortness of breath, Dizziness, Fainting spells, Chest pain Allergies/Adverse Reactions: Allergies No Known Allergies Allergy (Verified 08/18/20 22:21) Medications to take at Discharge Aspirin [Aspirin, Baby] 81 mg PO DAILY@0800 08/18/20 Lisinopril [Zestril] 15 mg PO DAILY #45 tablet 08/20/20 Simvastatin 20 mg PO QHS #30 tablet 08/20/20 The following prescriptions were given: Simvastatin 20 mg PO QHS #30 tablet Transmission Status: Pending to [facility] Lisinopril [Zestril] 15 mg PO DAILY #45 tablet Transmission Status: Pending to [facility] Primary Care Physician: NOT,DEFINED [NON-STAFF] - Please follow up with your Primary Care Physician in: 1 Week Test Results: Test results from this visit will be discussed in further detail at your follow-up appointment, if applicable. Please Follow Up With: Eliseo Gill MD When: 2-4 Weeks Proposed Discharge Date: 08/20/20
--- NOTE | 2020-08-20 10:41 | DS.PCM_ITS ---
<Alicia Machado [employer]2B SALES MANAGER - Last Filed: 08/20/20 10:52> Discharge Date and Diagnosis - Problem List Patient Problems: Active and Suspected Problems (Last Updated 08/20/20 @ 10:53 by Chayito Salas) Near syncope (Acute) Date of Admission: 08/18/20 Date of Discharge: 08/20/20 - Primary Discharge Diagnosis Acute Problems: Active Problems 1. Presyncope 2. Hyperlipidemia 3. CAD 4. Bradycardia 5. Elevated blood pressure without history of hypertension - Secondary Discharge Diagnosis Chronic Problems: Chronic Problems Hyperlipidemia (Chronic) History of non-ST elevation myocardial infarction (NSTEMI) (Chronic) Hospital Course and Treatment Imaging Results: Diagnostic Data Chest X-Ray 08/18/20 22:32 IMPRESSION: No acute pulmonary process Electronically Signed: Randy Parker MD at 22:50 EDT , Service support , Echocardiogram 08/19/20 00:40 Interpretation Summary Normal LV size. Moderate concentric left ventricular hypertrophy. The estimated ejection fraction is 45 %. Mild to moderate segmental systolic dysfunction (see wall motion). The left atrium is moderately enlarged. Pulmonary artery systolic pressure is 28 mmHg. Stage 1 diastolic dysfunction. Ordering Physician: Madelaine Siu Referring Physician: Isaiah Chinchilla [employer]2B SALES MANAGER-C Performed By: Ricardo Yee RCS Dr. Gill- Cardiology Operations: None Procedures: 2-D Echocardiogram, Cardiac catheterization Summary of Care Provided: The patient is a 70 year old M admitted 08/18/2020 due to lightheadedness with diaphoresis. 1. Presyncope-troponin negative. Echocardiogram demonstrates an EF of 45%, mild to moderate systolic dysfunction, pulmonary artery systolic pressure 28 mmHg, stage I diastolic dysfunction. Cardiology consulted. Patient underwent heart cath which demonstrated a subtotally occluded nondominant circumflex artery and complex tortuous mid right coronary artery 70 to 85% stenosis. Plan for medical management and further follow-up with cardiology. Continue aspirin, statin, lisinopril. Follow-up with cardiology in 2 to 4 weeks. Follow-up with PCP in 1 week. 2. Hyperlipidemia-increased simvastatin to 20 mg daily. 3. CAD-heart cath as noted above. Aspirin, statin at discharge. Unable to place on beta-carlton due to bradycardia. 4. Bradycardia-not on rate limiting regimen. Appears stable. TSH normal. 5. Elevated blood pressure without history of hypertension-initiated on lisinopril 50 mg daily. Follow-up with PCP in 1 week for blood pressure recheck. General: Alert, Oriented x3, Cooperative HEENT: Atraumatic, PERRLA, EOMI, Normocephalic Neck: Supple, No JVD, Negative Carotid Bruits Lungs: Clear to auscultation, Normal air movement Cardiovascular: Regular Rhythm, Normal S1, Normal S2, No murmurs, Bradycardic Abdomen: Bowel Sounds Present, Soft, Non Tender, Non-Distended Extremities: No clubbing, No cyanosis, No edema, Capillary Refill Less than 3 Seconds Skin: No rashes, No breakdown Musculoskeletal: No Tenderness to Palpation of Joints or Extremities Neurological: Cranial nerves II-XII grossly intact, Neuro grossly intact Psych/Mental Status: Normal Affect, Appropriate Patient seen and examined prior to discharge. Physical assessment as noted above. Patient is stable for discharge with follow up recommendations as noted above. This patient was seen by LIDA Gomez under the supervision of Dr. Dangelo. Patient Problems: Active and Suspected Problems (Last Updated 08/20/20 @ 10:53 by Chayito Salas) Near syncope (Acute) - Physical Exam Vitals/I&O's: Vital Signs Temp Pulse Resp BP Pulse Ox 97.8 F 52 L 18 150/74 H 95 08/20/20 08:30 08/20/20 10:15 08/20/20 10:15 08/20/20 10:15 08/20/20 10:15 Oxygen Delivery Method Room Air Weight: 177 lb 7.554 oz Body Mass Index (BMI) 26.2 Intake and Output for Last 24 Hours 08/18/20 08/19/20 08/20/20 23:59 23:59 23:59 Intake Total 980 / 980 Balance 980 / 980 Laboratory Results 08/19/20 04:36: Hemoglobin A1c 5.4 08/20/20 05:08: Sodium 136, Potassium 3.6, Chloride 105, Carbon Dioxide 26.0, Anion Gap 5, BUN 15, Creatinine 0.62 L, Estim Creat Clear Calc 68.74, Est GFR (MDRD) Af Amer 164, Est GFR (MDRD) Non-Af 135, BUN/Creatinine Ratio 24.0 H, Glucose 100, Calcium 8.4 L, Triglycerides 155, Cholesterol 173, LDL Cholesterol 93, VLDL Cholesterol 31, HDL Cholesterol 49 08/20/20 05:08: TSH 2.13 Current Medications Acetaminophen (Acetaminophen 325 Mg Tablet) 650 mg PO Q6H PRN PRN PRN Reason: Pain Score 1-10/Temp > 100.7 F Aspirin (Aspirin 81 Mg Tab.Chew) 81 mg PO DAILY@0800 [facility] Last Admin: 08/20/20 06:29 Dose: 81 mg Documented by: Atorvastatin Calcium (Atorvastatin Calcium 10 Mg Tablet) 5 mg PO QHS [facility] Last Admin: 08/19/20 22:55 Dose: 5 mg Documented by: Sodium Chloride () 250 mls @ 15 mls/hr IV .[id number] PRN PRN Reason: Saline Flush Sodium Chloride () 250 mls @ 15 mls/hr IV .[id number] PRN PRN Reason: Additional IVPB Infusion Sodium Chloride () 1,000 mls @ 0 mls/hr IV .Q0M [facility] Lisinopril (Lisinopril 10 Mg Tablet) 10 mg PO DAILY [facility] Last Admin: 08/20/20 06:29 Dose: 10 mg Documented by: Melatonin (Melatonin 3 Mg Tablet) 3 mg PO QHS PRN PRN PRN Reason: INSOMNIA Ondansetron HCl (Ondansetron 4 Mg/2 Ml Vial) 4 mg IV Q8H PRN PRN PRN Reason: NAUSEA/VOMITING Sodium Chloride (0.9% Saline Lock 10 Ml Syringe) 10 - 40 ml IV UD PRN PRN Reason: SALINE FLUSH Last Admin: 08/19/20 22:56 Dose: 20 ml Documented by: Discharge Diet: Low fat/ Low Cholesterol Discharge Activity: Return to Normal Activity Call your doctor if you observe: Shortness of breath, Dizziness, Fainting spells, Chest pain Home Medications: Medications to take at Discharge Aspirin [Aspirin, Baby] 81 mg PO DAILY@0800 08/18/20 Lisinopril [Zestril] 15 mg PO DAILY #45 tablet 08/20/20 Simvastatin 20 mg PO QHS #30 tablet 08/20/20 Following Prescriptions Were Given to Patient: Simvastatin 20 mg PO QHS #30 tablet Transmission Status: Received by [facility] Lisinopril [Zestril] 15 mg PO DAILY #45 tablet Transmission Status: Received by [facility] Primary Care Physician: NOT,DEFINED [NON-STAFF] - Please follow up with your Primary Care Physician in: 1 Week Please Follow Up With: Eliseo Gill MD When: 2-4 Weeks Disposition: Home Minutes spent on discharge:: 35 Patient Condition:: Stable Medical Necessity - Tobacco Use Smoking Status: Light Smoker (<10/day) Tobacco Use: Cigarettes Meaningful Use Info Meaningful Use Diagnoses (Choose all that apply): None applicable <Jeaneth Dangelo - Last Filed: 08/20/20 14:49> Discharge Date and Diagnosis - Primary Discharge Diagnosis Acute Problems: Active Problems (Last Updated 08/20/20 @ 10:53 by Chayito Salas) Near syncope (Acute) - Secondary Discharge Diagnosis Chronic Problems: Chronic Problems (Last Updated 08/20/20 @ 10:53 by Chayito Salas) Atherosclerotic heart disease of [place] coronary artery without angina pectoris (Chronic) Hyperlipidemia (Chronic) History of non-ST elevation myocardial infarction (NSTEMI) (Chronic) Hospital Course and Treatment Summary of Care Provided: I agree with the above and the following is representation of my independent history and physical examination. Mr. Bone is a 70 year old WM with a past medical history of CAD and hyperlipidemia who presented to the emergency department [facility] on 08/19/2020 complaining of lightheadedness with diaphoresis. Upon presentation he stated that he was playing cards when he out of nowhere became lightheaded and diaphoretic. He reported he had an NSTEMI approximately 20 years ago but does not follow-up consistently and is unclear on what occurred when this happened. His vital signs in the emergency department were stable and showed mild hypertension with a blood pressure of 155/85. He was also bradycardic with a heart rate in the 50s. His initial troponin was negative and his EKG showed no acute ST-T wave changes. His cardiac enzymes were cycled and were negative x3. His lipid panel showed a total cholesterol of 173, and LDL of 93 and an HDL of 49. His TSH was 2.13. Hemoglobin A1c was 5.4. An echocardiogram was performed and showed an EF of 45% with mild to moderate segmental systolic dysfunction and stage I diastolic dysfunction. Given his abnormal echo cardiology was consulted and a cardiac catheterization was performed on the a.m. of 08/20/2020. LHC showed a subtotally occluded nondominant circumflex artery and a complex mid right coronary artery that medical therapy was recommended for at this time. Cardiology also recommended that an outpatient interval stress test be performed to assess ischemia noted in the inferior wall. He was continued on his simvastatin 20 mg nightly as his lipid panel was at goal. He was started on lisinopril 15 mg daily. We were not able to start about a beta-carlton because of his continued bradycardia. He will follow-up in the outpatient setting with Dr. Gill in 2 to 4 weeks. Prescriptions were sent to his pharmacy and we recommended follow-up with his primary care physician in 1 week. Discharge diagnoses Coronary artery disease Hypertension Hyperlipidemia Bradycardia-asymptomatic Presyncope HFrEF-compensated secondary to ischemic cardiomyopathy (EF 45%) [] Discharge time greater than 35 minutes Subjective: States that he continues to feel well. Reports that he is ready to go home. Is pleased that he did not need any cardiac intervention at this time. - Physical Exam Vitals/I&O's: Vital Signs Temp Pulse Resp BP Pulse Ox 97.5 F L 52 L 18 130/69 H 93 08/20/20 11:20 08/20/20 12:15 08/20/20 12:15 08/20/20 12:15 08/20/20 12:15 Oxygen Delivery Method Room Air Weight: 80.5 kg Body Mass Index (BMI) 26.2 Intake and Output for Last 24 Hours 08/18/20 08/19/20 08/20/20 23:59 23:59 23:59 Intake Total 980 / 980 240 / 240 Balance 980 / 980 240 / 240 General: Alert, Oriented x3, Cooperative, No apparent distress, Well developed, Well nourished, - - Older white male sitting up in bed, appears well, watching TV HEENT: Atraumatic, PERRLA, EOMI, Normocephalic, EAC Clear Oral: Moist Mucosa, No Gingival or Mucosal Lesions/ Ulcerations Neck: Supple, No JVD, Trachea Midline, Thyroid Normal Size and Texture Lungs: Clear to auscultation, Normal air movement, No rhonchi, No wheeze, No rales Cardiovascular: Regular rate, Regular Rhythm, Normal S1, Normal S2, No murmurs, No Ectopic Activity, No rub noted, No Gallop Abdomen: Bowel Sounds Present, Soft, Non Tender, Non-Distended Extremities: No clubbing, No cyanosis, No edema, Capillary Refill Less than 3 Seconds, Peripheral Pulses Normal Skin: No rashes, No breakdown, - - Band right radius for compression post catheterization Musculoskeletal: No Tenderness to Palpation of Joints or Extremities, No Muscle Wasting, Arthritic Changes Neurological: Cranial nerves II-XII grossly intact, Neuro grossly intact, Muscle tone normal, Coordination normal Laboratory Results 08/19/20 04:36: Hemoglobin A1c 5.4 08/20/20 05:08: Sodium 136, Potassium 3.6, Chloride 105, Carbon Dioxide 26.0, Anion Gap 5, BUN 15, Creatinine 0.62 L, Estim Creat Clear Calc 68.74, Est GFR (MDRD) Af Amer 164, Est GFR (MDRD) Non-Af 135, BUN/Creatinine Ratio 24.0 H, Glucose 100, Calcium 8.4 L, Triglycerides 155, Cholesterol 173, LDL Cholesterol 93, VLDL Cholesterol 31, HDL Cholesterol 49 08/20/20 05:08: TSH 2.13 Current Medications Acetaminophen (Acetaminophen 325 Mg Tablet) 650 mg PO Q6H PRN PRN PRN Reason: Pain Score 1-10/Temp > 100.7 F Aspirin (Aspirin 81 Mg Tab.Chew) 81 mg PO DAILY@0800 [facility] Last Admin: 08/20/20 06:29 Dose: 81 mg Documented by: Atorvastatin Calcium (Atorvastatin Calcium 10 Mg Tablet) 5 mg PO QHS [facility] Last Admin: 08/19/20 22:55 Dose: 5 mg Documented by: Sodium Chloride () 250 mls @ 15 mls/hr IV .[id number] PRN PRN Reason: Saline Flush Sodium Chloride () 250 mls @ 15 mls/hr IV .[id number] PRN PRN Reason: Additional IVPB Infusion Sodium Chloride () 1,000 mls @ 0 mls/hr IV .Q0M [facility] Lisinopril (Lisinopril 10 Mg Tablet) 10 mg PO DAILY [facility] Last Admin: 08/20/20 06:29 Dose: 10 mg Documented by: Melatonin (Melatonin 3 Mg Tablet) 3 mg PO QHS PRN PRN PRN Reason: INSOMNIA Ondansetron HCl (Ondansetron 4 Mg/2 Ml Vial) 4 mg IV Q8H PRN PRN PRN Reason: NAUSEA/VOMITING Sodium Chloride (0.9% Saline Lock 10 Ml Syringe) 10 - 40 ml IV UD PRN PRN Reason: SALINE FLUSH Last Admin: 08/19/20 22:56 Dose: 20 ml Documented by: Meaningful Use Info Meaningful Use Diagnoses (Choose all that apply): None applicable Inpatient E&M: [address] [facility]
--- NOTE | 2020-08-20 13:00 | PHA.DC.MC ---
Pharmacy Service has performed discharge medication reconciliation and counseling for this patient. 1. LISINOPRIL 15MG PO DAILY The patient's discharge medication list was reviewed for discrepancies and discrepancies were resolved. Home Medications Aspirin [Aspirin, Baby] 81 mg PO DAILY@0800 08/18/20 Lisinopril [Zestril] 15 mg PO DAILY #45 tablet 08/20/20 Simvastatin 20 mg PO QHS #30 tablet 08/20/20 The patient was counseled on the following discharge medications and changes in medications for homegoing were reviewed. The Reason for Use, instructions for use, and potential side effects were reviewed for all new medications. The patient's questions regarding all of their medications were answered. The patient was able to verbally demonstrate an understanding of their discharge medications.
== END 2020-08-20 08:24 | disposition home or self-care (01) ==
LOC: ED 23:12 → PCU 08-19 01:59
PROVIDERS: Nurse Practitioner Family; Admitting Provider Family Medicine; Emergency Provider Emergency Medicine; PCP Nurse Practitioner Family; Visit Provider Internal Medicine
DX: R55 Syncope and collapse (principal); E78.5 Hyperlipidemia, unspecified; I25.10 Atherosclerotic heart disease of native coronary artery without angina pectoris; I25.2 Old myocardial infarction; R00.1 Bradycardia, unspecified; R42 Dizziness and giddiness; F17.210 Nicotine dependence, cigarettes, uncomplicated; E66.3 Overweight; I11.0 Hypertensive heart disease with heart failure; I50.20 Unspecified systolic (congestive) heart failure; I08.3 Combined rheumatic disorders of mitral, aortic and tricuspid valves; R93.1 Abnormal findings on diagnostic imaging of heart and coronary circulation; Z79.899 Other long term (current) drug therapy; Z79.82 Long term (current) use of aspirin; Z68.26 Body mass index [BMI] 26.0-26.9, adult
CPT/HCPCS: 36415; 71045; 80048; 80061; 83036; 83735; 84443; 84484; 85025; 85610; 85730; 93005; 93306; 93458; 99152; 99153; 99218; 99285; 99406; J7040; Q9957; Q9967; A4216; C1769; C1894; C8929; G0378

== ENCOUNTER → 2020-09-11 08:34 | Outpatient (CLI) | payer SELFPAY, OTHER ==
[2020-08-19 00:29] VITALS: BMI 26.2
--- NOTE | 2020-09-11 17:41 | STRESSREP_ITS ---
Stress Test Report Exercise mild cardial perfusion stress test. 70-year-old man with a history of coronary artery disease with known complex moderate stenosis in the right coronary artery with an akinetic inferobasal segment. Stress protocol: Rest EKG demonstrates sinus bradycardia with a rate of 55 bpm previous inferior infarct is noted. Resting blood pressures 126/74 mmHg. The patient exercised according to the regular Jakob protocol for total duration of 6 minutes and 15 seconds the maximum heart rate attained was 102 bpm which was 68% of maximum pre dicted heart rate the maximum workload was 7.3 metabolic equivalents. At rest there were no ST or T wave changes noted to suggest ischemia at peak exercise upsloping ST changes were noted which did not meet the criteria for ischemia. Downsloping ST changes were noted in the inferior leads. The patient attained 68% of maximum predicted heart rate and the test was terminated and switched to a pharmacologic myocardial perfusion stress test due to failure to attain appropriate heart rate. 0.4 mg of regadenoson was then infused per usual protocol followed by rapid intravenous saline flush injection continuous EKG monitoring was performed. Nonspecific ST changes were noted. Myocardial perfusion protocol. 11.9 mCi of technetium 99m sestamibi was injected at rest. 0.4 mg of regadenoson was infused per usual protocol. At peak infusion 34.6 mCi of technetium 99m sestamibi was injected stress images were obtained stress and rest images were reconstructed and compared in the short axis vertical long horizontal long axis. Gated images were also obtained. Perfusion SPECT analysis: Review of the stress images demonstrate normal cardiac silhouette size. There was a large defect noted involving the mid to basal inferior wall on the stress images. There was also a small defect noted in the apex on the stress images. The resting images demonstrate an identical pattern suggestive of a large basal to mid inferior infarct with no ischemia as well as a previous apical infarct. Gated SPECT analysis: The gated ejection fraction is noted to be 45%. Conclusion: Exercise myocardial perfusion stress test with no evidence of ischemia at a moderate workload. Pharmacologic myocardial perfusion stress test with previous basal to mid inferior infarct and apical infarct no ischemia is noted. Mild left ventricular systolic dysfunction with basal inferior hypokinesis.
== END ==
PROVIDERS: PCP Nurse Practitioner Family; Referring Provider Internal Medicine Cardiovascular Disease; Visit Provider Internal Medicine Cardiovascular Disease
DX: I25.10 Atherosclerotic heart disease of native coronary artery without angina pectoris (principal)
CPT/HCPCS: 78452; 93017; A9500; A4216; J2785

== ENCOUNTER → 2020-09-25 11:20 | Outpatient (CLI) | payer OTHER, SELFPAY ==
[2020-09-25 07:35] VITALS: BMI 26.2
== END ==
PROVIDERS: PCP Nurse Practitioner Family; Referring Provider Internal Medicine Cardiovascular Disease; Visit Provider Internal Medicine Cardiovascular Disease
DX: R55 Syncope and collapse (principal); I25.10 Atherosclerotic heart disease of native coronary artery without angina pectoris
CPT/HCPCS: 93225; 93226

== ENCOUNTER 2025-01-03 08:07 | Emergency (ER) | payer OTHER, SELFPAY ==
[2025-01-03 08:09] VITALS: BP 153/101; PULSE 92; RESP 18; TEMP 36.8; O2SAT 95; BMI 29.5
--- NOTE | 2025-01-03 08:40 | EDS_ITS ---
HPI HPI - GI History of Present Illness Chief Complaint: Abd Pain Informant: patient Abdominal Pain/Flank Pain Onset: Yesterday Context: Gradual Onset Timing: Intermittent Quality: Burning Location: RUQ Worsened by: Nothing Relieved by: Nothing Nausea/Vomiting/Emesis GI Symptom: Negative for Nausea or Vomiting Diarrhea/Melena/Hematochezia GI Symptom: Negative for Diarrhea, Melena or Hematochezia Associated Symptoms Associated Symptoms: Negative for Dysuria, Frequency or Hematuria Narrative Narrative: Patient presents with abdominal pain that began last night. Patient states her pain is mainly over the right side of his abdomen. Patient states it comes and goes. Patient states it has been constant since this morning. Patient describes it as burning. Patient states it is mainly over the right upper abdomen. Patient states nothing makes it worse and nothing makes it better. Patient states his last meal was approximately 7 AM today. Patient ate rolled oats and cake and coffee. Patient denies any nausea or vomiting. Patient denies any dysuria or hematuria. Patient denies any diarrhea, melena, or hematochezia. Patient denies any fevers or chills. PFSH PFS Medical History Old inferior wall myocardial infarction Essential (primary) hypertension Nicotine dependence Ischemic cardiomyopathy Atherosclerotic heart disease of [place] coronary artery without angina pectoris History of non-ST elevation myocardial infarction (NSTEMI) (1999) Hyperlipidemia Near syncope (08/18/20) Home Medications ?Medication ?Instructions ?Recorded ?Last Taken ?Type aspirin 81 mg chewable tablet 81 mg PO DAILY@0800 08/0808/17/20 History simvastatin 20 mg tablet 20 mg PO QHS #30 tabs Unknown Rx niacin 100 mg tablet 100 mg PO DAILY 09/25/20 Unk nown History omega-3 fatty acids 1,000 mg 1,000 mg PO DAILY 1 Unknown History capsule saw palmetto 450 mg capsule 450 mg PO BID 09/25/20 Unk nown History niacin PO 01/03/25 Unknown History Allergy/AdvReac Type Severity Reaction Status Date / Time lisinopril AdvReac Intermediate cough, Verified 03/31/21 08:56 upset stomach Family History Father Heart disease Hypertension Surgical History History of left heart catheterization (08/20/20) Social History Smoking Status: Light Smoker (<10/day) alcohol intake: never substance use type: does not use caffeine: Yes Type: coffee Number of servings: 1 ROS ROS ED Constitutional Constitutional ED: Denies chills or fever(s) Eyes Eyes: Denies blurry vision or change in vision ENT ENT ED: Denies rhinorrhea or sore throat Cardiovascular Cardiovascular: Denies chest pain or palpitations Respiratory/Chest Respiratory/Chest: Denies cough or dyspnea Gastrointestinal Gastrointestinal: Reports abdominal pain; Denies diarrhea, melena, nausea or vomiting Genitourinary Genitourinary ED: Denies dysuria or hematuria Musculoskeletal Musculoskeletal: Denies back pain or neck pain Integumentary Denies abscess or rash Neurologic Neurologic: Denies headache(s) or weakness Allergic/Immunologic Allergic/Immunologic ED: Denies mouth swelling or urticaria EXAM Physical Exam Const Vital Signs: 01/03/25 08:09 01/03/25 10:04 01/03/25 11:55 Temperature 98.3 F 97.8 F 97.4 F L Temperature Source Oral Oral Pulse Rate 92 82 73 Respiratory Rate 18 20 H 24 H Blood Pressure 153/101 H 161/75 H 159/92 H Blood Pressure Mean 118 103 114 Pulse Ox 95 93 94 Oxygen Delivery Method Room Air Room Air Positive well nourished and well developed Constitutional Narrative: BMI is 29.5. General Appearance ED: well developed and NAD HEENT Reports moist mucous membranes Neck supple and no JVD Resp normal respiratory effort and clear to auscultation bilaterally Cardio regular rate and regular rhythm GI non-distended Palpation: soft and tender RLQ (Mild) and RUQ; Negative for guarding Extremity full ROM General Extremety ED: Negative for edema or tenderness General Extremity: Negative for edema Neuro CN's II-XII intact bilaterally, moves all extremities and no sensory deficits noted Sensorium / Orientation: alert, oriented to person, oriented to place and oriented to time Motor Exam: strength 5/5 throughout Psych mental status grossly normal MDM MDM MDM Narrative Medical decision making narrative: Differential diagnosis includes cholecystitis, cholelithiasis, pancreatitis, gastroenteritis, peptic ulcer disease, duodenal ulcer, pyelonephritis, and ureteral calculus. CBC will be obtained to assess for leukocytosis and anemia. Comprehensive metabolic profile will be obtained to assess for hepatic function, renal function, and electrolyte abnormality. Lipase will be obtained to assess for pancreatitis. Urinalysis will be obtained to assess for urinary tract infection and hematuria. CT scan of the abdomen and pelvis will be obtained to assess for cholecystitis, cholelithiasis, bowel obstruction, perforation, and ureteral calculus. Lab Data Attestation: I reviewed the patient's lab results. Lab results narrative: CBC was reviewed and was within normal limits. Comprehensive metabolic profile was reviewed. Glucose was slightly elevated at 151. The remainder is within normal limits. Lipase was reviewed and was normal at 53. PT was INR and PTT were reviewed. Pro time was 14.2 and INR is 1.1. PTT was 67.9. Labs: Laboratory Results - last 24 hr 01/03/25 01/03/25 01/03/25 08:54 10:40 11:10 WBC 8.3 RBC 5.14 Hgb 16.2 Hct 46.1 MCV 89.7 MCH 31.5 MCHC 35.1 RDW Std Deviation 42.5 RDW Coeff of Nicholas 12.9 Plt Count 222 MPV 9.3 Immature Gran % (Auto) 0.800 Neut % (Auto) 69.5 Lymph % (Auto) 19.0 Wetzel % (Auto) 7.7 Eos % (Auto) 2.3 Baso % (Auto) 0.7 Absolute Neuts (auto) 5.8 Absolute Lymphs (auto) 1.58 Nucleated RBC % 0 PT Cancelled 14.2 INR Cancelled 1.1 APTT Cancelled 67.9 H Sodium 136 Potassium 4.0 Chloride 98 Carbon Dioxide 24.9 Anion Gap 13 BUN 15 Creatinine 0.71 Estim Creat Clear Calc 90.09 Est GFR (MDRD) Non-Af 96 BUN/Creatinine Ratio 20.6 H Glucose 151 H Calcium 9.5 Total Bilirubin 0.82 AST 26 ALT 6 Alkaline Phosphatase 113 Total Protein 8.4 Albumin 4.6 Globulin 3.8 Albumin/Globulin Ratio 1.2 Lipase 53 Radiography Diagnostic Testing: Clinical Impression(s) from Imaging Studies Chest/Abdomen/Pelvis CTA 01/03/25 09:13 IMPRESSION: Extensive pulmonary embolism in the right hemithorax as described with patchy infiltrates in the right lower lobe and small nodule in the left lower lobe. Extensive thrombus in the infrarenal abdominal aorta extending into both common iliac arteries worse on the right side. Poor flow into the left common iliac and external iliac arteries. Red Alert: Pulmonary embolism. Thrombus seen in the infrarenal abdominal aorta extending into both iliac arteries bilaterally. The critical information above was relayed directly by me by telephone to Eugene Verdugo on 01/03/2025 at 10:14 am with readback verification. Reading Location: [id number] CTA of the chest, abdomen, and pelvis was obtained. There is extensive pulmonary embolism of the right hemithorax and patchy infiltrates in the right lower lobe. There is also extensive thrombus in the infrarenal abdominal aorta extending into both common iliac arteries, worse on the right. This was interpreted by the radiologist as also independently reviewed by myself. Management Discussion w/another healthcare provider: Equity Research Associate and Radiologist Treatment and Re-Evaluation :: Patient was given IV fluids, morphine, and Zofran. Patient was feeling better on reevaluation. Patient was started on heparin. PT was INR and PTT were also obtained. Case was discussed with Dr. Ramirez from [facility]. She excepted the patient be transferred. She recommended transferring the patient to the emergency department. Patient will be transferred there. Patient and family understood and were agreeable with the plan. All questions were answered. Critical Care Time Critical Care Time: Yes Critical care time (excluding procedures): 30-74 minutes (36), Including time spent:, Discussing w/Patient &/or Family/Textile Designer, Discussing w/Consultants, Arranging Admission or Transfer and Performing Direct Patient Care at Bedside Discharge Plan Triage Chief Complaint: Abd Pain ED Provider: Eugene Verdugo Dx/Rx/DC Orders Clinical Impression: Abdominal aorta thrombosis, Essential (primary) hypertension, Pulmonary embolism, Atherosclerotic heart disease of [place] coronary artery without angina pectoris, Hyperlipidemia Prescriptions: No Action omega-3 fatty acids 1,000 mg capsule 1,000 mg PO DAILY niacin 100 mg tablet 100 mg PO DAILY saw palmetto 450 mg capsule 450 mg PO BID Rx Instructions: give with food (meal/snack) aspirin 81 MG tablet,chewable 81 mg PO DAILY@0800 simvastatin 20 MG tablet 20 mg PO QHS Qty: 30 0RF niacin PO Primary Care Provider: Isaiah Chinchilla NP Referrals: Isaiah Chinchilla TWISTING FRAME FIXER, TWISTING FRAME FIXER-C [Primary Care Provider] - Print Language: Telugu Disposition Disposition: Acute Care Hospital Discharge Location: [facility]
[2025-01-03 09:02] LABS: Hematocrit 46.1 % (40-54); Hemoglobin 16.2 g/dL (13.0-16.5); Immature Granulocytes Count 0.070 X10^3/uL (0.0-0.0); Mean Corp Hgb Conc 35.1 g/dL (32-36); Mean Corpuscular Volume 89.7 fL (80-94); Mean Platelet Vol. 9.3 fl (6.2-12.0); NRBC Flagged by Analyzer 0 % (0-5); Platelet Count 222 K/mm3 (150-450); RBC Distribution Width CV 12.9 % (11.6-14.6); RBC Distribution Width SD 42.5 fl (35.1-43.9); Red Blood Count 5.14 M/mm3 (4.6-6.2); White Blood Count 8.3 K/mm3 (4.4-11.0)
--- NOTE | 2025-01-03 09:13 | CT_ITS ---
PROCEDURE: CTA CHST, ABD, PEL W AND/OR WO 01/03/2025 REASON FOR EXAM: ABDOMINAL PAIN Postprandial right upper quadrant pain. History of bilateral inguinal hernia repair. TECHNIQUE: CTA CHST, ABD, PEL W AND/OR WO coronal and Sagittal reconstruction series were provided. One or more dose reduction techniques were used (e.g., Automated exposure control, adjustment of the mA and/or kV according to patient size, use of iterative reconstruction technique. CONTRAST: Isovue-300 VOLUME: 100 mL RADIATION DOSE SUMMARY: CTDlvol: 17.2 mGy DLP: 2333.08 mGycm COMPARISON: None FINDINGS: CHEST: Lines and tubes: None Mediastinum: Small benign-appearing bilateral axillary lymph nodes. Heart: Borderline cardiomegaly. No significant coronary artery calcification is seen. Thoracic Aorta: No thoracic aortic aneurysm or dissection. Lungs and Airways: There is evidence of multiple intraluminal filling defects in the distal portion of the right pulmonary artery extending into branches of the right upper and right lower pulmonary arterial branches. Patchy areas of airspace disease in the lateral aspect of the right lower lobe suggestive of possible atelectasis. Minimal loculated right pleural effusion. There is a 7.2 mm pleural-based nodule in the lateral aspect of the left lower lobe. Follow-up examination recommended. Pleura: Tiny right pleural effusion. Bones: Degenerative changes of the spine. ABDOMEN AND PELVIS: Liver: Diffuse fatty infiltration. Gallbladder: Unremarkable Spleen: Multiple calcified granulomas. Pancreas: Normal size without evidence of mass surrounding inflammation or ductal dilation. Adrenals: Unremarkable Kidneys: Normal renal sizes. No hydronephrosis. Focal cortical scarring the lateral inferior aspect of the right kidney. Bladder: Unremarkable Mild enlargement of the prostate Bowel: Colonic diverticulosis without diverticulitis. Vasculature: There is evidence of thrombus in the infrarenal abdominal aorta extending into both common iliac arteries. A filling defect is seen in the right common iliac artery down to the right external iliac artery. A stent is seen in the distal right external iliac and right femoral artery. Peritoneum / Retroperitoneum: Unremarkable Bones: Degenerative changes of the spine. CT/CTA Chst, Abd, Pel W and/or WO IMPRESSION: Extensive pulmonary embolism in the right hemithorax as described with patchy i nfiltrates in the right lower lobe and small nodule in the left lower lobe. Extensive thrombus in the infrarenal abdominal aorta extending into both common iliac arteries worse on the right side. Poor flow into the left common iliac and external iliac arteries. Red Alert: Pulmonary embolism. Thrombus seen in the infrarenal abdominal aorta extending into both iliac arteries bilaterally. The critical information above was relayed directly by me by telephone to Eugene Jordan on 01/03/2025 at 10:14 am with readback verification. Reading Location: [id number]
[2025-01-03 09:20] LABS: AST(SGOT) 26 U/L (<=37); Alanine Aminotransfer ALT/SGPT 6 U/L (<=46); Albumin, Serum 4.6 g/dL (3.4-4.8); Alkaline Phosphatase 113 U/L (40-129); Anion Gap 13 (5-15); BUN 15 mg/dL (4-19); BUN/Creat Ratio 20.6 RATIO (10-20); Calcium,Total 9.5 mg/dL (7.6-11.0); Carbon Dioxide 24.9 mmol/L (21.0-32.0); Chloride 98 mmol/L (98-108); Estimated Creatinine Clearance 90.09 ml/min (50-250); Globulin 3.8 g/dL (2.2-4.2); Glucose 151 mg/dL (70-99); Lipase 53 U/L (13-75); Potassium 4.0 mmol/L (3.3-5.1)
[2025-01-03] MEDS: 0.9% Normal Saline (1000mL) 1,000 ML 1000 ML IV (09:36)
[2025-01-03 10:04] VITALS: BP 161/75; PULSE 82; RESP 20; TEMP 36.6; O2SAT 93
[2025-01-03] MEDS: HEPARIN/D5w 25,000 UNITS 25,000 UNITS/250 ML IV.SOLN. 13.6 UNITS CONT INF (11:02)
[2025-01-03 11:34] LABS: Prothrombin Time (Protime)PT. 14.2 SECONDS (11.7-14.9)
[2025-01-03 11:36] LABS: Partial Thromboplast Time 67.9 Seconds (24.1-36.2)
[2025-01-03 11:55] VITALS: BP 159/92; PULSE 73; RESP 24; TEMP 36.3; O2SAT 94
== END 2025-01-03 12:26 | disposition short-term general hospital (02) ==
PROVIDERS: Emergency Provider Emergency Medicine; PCP Nurse Practitioner Family; Visit Provider Emergency Medicine
DX: I26.99 Other pulmonary embolism without acute cor pulmonale (principal); I74.09 Other arterial embolism and thrombosis of abdominal aorta; I10 Essential (primary) hypertension; I25.10 Atherosclerotic heart disease of native coronary artery without angina pectoris; R10.9 Unspecified abdominal pain; E78.5 Hyperlipidemia, unspecified; I25.2 Old myocardial infarction; Z79.82 Long term (current) use of aspirin; Z79.899 Other long term (current) drug therapy; F17.200 Nicotine dependence, unspecified, uncomplicated
CPT/HCPCS: 71275; 74174; 80053; 83690; 85025; 85610; 85730; 96361; 96374; 96375; 99285; Q9967; J2405